=== PATIENT | male | born 1950 | race Caucasian/White ===

== ENCOUNTER 2017-01-09 18:08 | Inpatient (IN) | payer MEDICARE ==
[~2017-01-09] VITALS: Ht 172.7 cm; Wt 74.8 kg
[~2017-01-09 18:08] MED LIST: GABA300S PO; GLUC-180 PO; LACT1CAP73 PO; MAGN400C PO; MELA5TAB12 PO; MULT-1018 PO; OXYC-176 PO; QVAR INH; RYT150 PO; SEREVENT INH; TEMA15CA PO; VIT1TABL95 PO; citrucel; zypan
--- NOTE | 2017-01-09 19:51 | NUR ---
ADMISSION Pt arrived onto unit at 1915 as a direct admit from [facility] urgent care for pneumonia. He has been seen a few times over the last week for coughing, chest congestion, PASTOR, fatigue, wheezing (asthma), low grade fever resolved earlier in week. Pt is A&Ox3, no pain, steady gait, independent. Oriented to room, call light. Doctor notified and this nurse and DO are currently initiating admission questions.
[2017-01-09] MEDS ORDERED: Polyethylene Glycol (PEG) 17 Gm Powder PO PRN (20:20)
[2017-01-09] MEDS ORDERED: Alum-Mag Hydrox-Simeth 30 mL Suspension PO PRN (20:20)
--- NOTE | 2017-01-09 20:29 | NUR ---
CPAP Pt has CPAP, will be bringing it this evening to the hospital. Addendum: 01/10/17 at 0203 by GINGER KLINE RN chose not to come in this evening due to windy weather. Charge nurse decided to use 1.5L O2 and continuous pulse ox at night. Pt did not want to pay for CPAP from hospital if possible.
[2017-01-09] MEDS: Albuterol-Ipratropium 3 mL Inhalation Solution NEB SCH (20:30)
--- NOTE | 2017-01-09 20:47 | PCM.HPMED ---
Subjective Date of Service Jan 09, 2017 Primary Provider: Admitting Physician: Jl Berumen MD Primary Care Physician: Nayeli Wells Attending Physician: Jl Berumen MD Chief Complaint: Cough, productive green sputum, shortness of breath, sweats, chills, wheeze, fatigue History of Present Illness: This is a 66-year-old male with past medical history of A. fib, takes propranolol 10 mg tablets twice per day, history of asthma exercise induced, who presented for direct admission at request of patient's PCP Shai Perez secondary to bilateral pneumonia as seen on chest x-ray today and worsening of his upper respiratory symptoms over the past week. Patient was seen on 2016 at urgent care and had chest x-ray done at that time that was negative, and was prescribed 20 mg of prednisone daily. Patient states he took a single dose of this medication with possibly some improvement however was keeping him awake at night so he will has been noncompliant with the medication. Patient states that he has taken prednisone on a few occasions since that time. Was again seen on 01/02/2017 by his PCP and was diagnosed with pneumonia given medication Augmentin as per day for 10 days. Patient states that he initially began to feel improvement of his upper respiratory symptoms which consist of following. Patient complains of intermittent fevers with last one on Thursday, , sweats, chills, shortness of breath, productive cough of green sputum , intermittent wheeze, headaches and fatigue. Patient also had associated symptoms at that time of dysuria and difficulty starting his stream, which is unusual for him. Patient states that since he has been augmented that his dysuria has resolved however after 2 days of antibiotics medication his symptoms again started to worsen prompting him to return to his primary care physician today. Today patient had chest x-ray done and showed bilateral pneumonia. Patient denies sore throats, neck stiffness, current headache, abdominal pain, nausea, vomiting, constipation, diarrhea, pain with urination. Vital signs at the clinic today were temperature 97.5F, 36.39C, pulse 65, respiratory rate 12, blood pressure 118/66 Chest x-ray, two-view, at [facility]'s 01/09/2017 showed: Bilateral patchy areas of density consistent with pneumonia Review of Systems: A comprehensive review of systems was conducted and was negative except as mentioned in history of present illness. Allergies Coded Allergies: NSAIDS (Non-Steroidal Anti-Inflamma (Verified Allergy, Intermediate, ) Pt doesn't remember amitriptyline (Verified Allergy, Intermediate, 01/09/17) Pt doesn't remember ciprofloxacin (Verified Allergy, Intermediate, N/V, 05/10/13) diltiazem (Verified Allergy, Intermediate, 01/09/17) Pt doesn't remember tadalafil (Verified Allergy, Intermediate, 01/09/17) Pt doesn't remember trazodone (Verified Allergy, Intermediate, 01/09/17) Pt doesn't remember sertraline (Verified Adverse Reaction, Intermediate, 01/09/17) Pt does not remember Home Medications Augmentin, 875 125 mg tablets take 1 tablet by mouth twice daily for 10 days. Patient is on day 7.5. And has had his morning dose but not his evening dose. Pro-air HFA 90 g metered-dose inhaler, take 2 puffs every 4 hours as needed, patient has been using twice per day, last use was one bout 1/2-2 hours prior to admission Dulera (Mometasone Furo-formoterol) 2005 microgram, take 2 inhalations twice a day. Aspirin 81 mg tablet daily Propranolol HCL 10 mg twice daily for A. fib, patient has only had his morning dose today Endocet (oxycodone acetaminophen) 53 25 mg tablets Temazepam 7.5 mg takes 2 tablets by mouth every night before bed Propafenone 225 mg tabs takes one by mouth 3 times a day Gabapentin 300 mg capsules 1 capsule 5 times daily PMH Seasonal allergies, Exercise-induced asthma, Atrial fibrillation, Mild mitral insufficiency, mild left atrial enlargement, history of colonic polyps in 2009 that showed tubular adenoma, 2013 hyperplastic polyp Diverticulosis IBS since 01/22/2011 Left shoulder dislocation 1996 Degenerative disc disease L4 on 5 L5-S1 with central canal stenosis History of renal stones Current anglesmith is Dr. Begum/Val Current millwright instructor is Dr. Geller Current urologist Dr. Tee Surgical History Partial right nephrectomy 2002 Appendectomy 1971 Family History Sr. hypertension Mother stomach cancer father bladder cancer, coronary artery disease Social History Hx Alcohol Use: Yes Alcoholic Drinks Per Day: 1 glass wine Hx Substance Use: No Hx Tobacco Use: No Smoking Status: Former Smoker (patient quit in 1992 smoked for 20 years half pack a day) Exam Vital Signs Vital signs at the clinic today were temperature 97.5F, 36.39C, pulse 65, respiratory rate 12, blood pressure 118/66 Exam General: Patient is alert, and oriented 3, speaking in full sentences, sitting at the edge of the bed in no acute distress. He is very tangential in his history. HEENT: NC/AT, eyes, PERRLA, EOMI, neck, soft supple, no adenopathy, no JVD, no masses, no thyromegaly, throat mucous membranes pink and moist, no erythema, no exudates, no tonsillar swelling, no uvular deviation. Lungs: Crackles heard bilateral bases, greater on the right than the left, with wheeze present on the right midlung field wheezes, no rhonchi, no use of accessory muscles of respiration, good air movement, good respiratory effort. Heart: Regular rate and rhythm, no murmur, S1-S2 present, no rub, no click, no distant heart sounds, Abdomen: Soft, nontender, nondistended, bowel sounds active, no rebound, no guarding, Genitourinary: No CVA tenderness, no suprapubic tenderness, no Pierre catheter, Extremities: pulses equal and symmetric upper/lower extremity including radial and dorsalis pedis, no edema Neurologic: Grossly neurologically intact, speaking in full sentences, no focal neurological signs Skin: Skin is intact and warm and dry without rash Psychiatric: Tangential in history otherwise mood and affect are congruent Lab and Diagnostics X-Rays, CTs and MRIs Chest x-ray, two-view, at [facility] Physician's 01/09/2017 showed: Bilateral patchy areas of density consistent with pneumonia Assessment & Plan This is a 66-year-old male with past medical history of A. fib, takes propranolol 10 mg tablets twice per day, history of asthma exercise induced, who presented for direct admission at request of patient's PCP Shai Perez secondary to bilateral pneumonia as seen on chest x-ray today and worsening of his upper respiratory symptoms. # Community acquired pneumonia, present on admission, active Patient was admitted for failed outpatient therapy on Augmentin, patient had taken 7.5 days worth of Augmentin when he was admitted to the hospital for observation. Patient stated that initially he was feeling improvement after a couple days of antibiotics but then began to feel as though he was worsening. Overall patient states his he is improved from his initial symptoms of shortness of breath, cough productive green sputum, sweats, chills, wheeze. He last reports fever on 01/05/2017 - CXR at [facility] showed bilateral patchy areas of density consistent with pneumonia - CBC with Diff, CMP, UA, Urine CX if indicated - Sputum ordered and pending - Blood Cx X 2 ordered and pending - Procalcitonin order depending - CAP Empiric ABx Ceftriaxone 1000 mg every 24 H + Doxycycline 100 mg every 12 hours - Acetominophen for Fever control - MRSA screen - IV Saline fluids 125 mg per hour maintenance - Legionella urine antigen, and Strep pneumonia urine antigen - Viral PCR (biofire) - Influenzae A/B - Start prednisone by mouth 20 mg daily - We will start DuoNeb therapy scheduled 2 then when necessary Chronic problems #Seasonal allergies, #Exercise-induced asthma, #Atrial fibrillation, - We will continue home medication propanolol 10 mg twice a day, of note patient did not take his p.m. dose on day of admission. - Continuous cardiac monitoring while in-house #Mild mitral insufficiency, mild left atrial enlargement, history of colonic polyps in 2009 that showed tubular adenoma, 2012 hyperplastic polyp #Diverticulosis #IBS since 01/22/2011 #Degenerative disc disease L4 on 5 L5-S1 with central canal stenosis #History of renal stones Current anglesmith is Dr. Begum/Val Current millwright instructor is Dr. Geller Current urologist Dr. Tee Disposition: Admitted to in patient service with expected length of stay greater than 2 days, secondary to severity of presenting symptoms, treatment plan, complexity of clinical work up, and risk of adverse events. CODE STATUS: Full code PCP: Shai Perez DVT PE prophylaxis: Enoxiparin Contact: Pain Evaluation: Adequate Pain Control VTE Prophylaxis: Sub-Q Enoxaparin Resuscitation Status: CPR: Attempt Resuscitation Attending Statement The patient was seen and examined together with Dr. Denney on 01/09/2017 and I agree with the history, exam and plan as outlined in the note above. Kris Denney DO Jan 09, 2017 20:47 Jl Berumen MD Jan 10, 2017 05:07
[2017-01-09 21:04] LABS: BASOPHILS % (AUTO) 0.2 % (0-3); EOSINOPHILS % (AUTO) 0.2 % (0-5); MONOCYTES % (AUTO) 9.1 % (4-12); Mean Corpuscular Hemoglobin 30.6 pg (27.0-35.0); Mean Corpuscular Volume 93.7 fL (81-100); Platelet Count 428 bil/L (150-400)
[2017-01-09 21:40] LABS: Magnesium 2.3 mg/dL (1.6-2.6)
[2017-01-09] MEDS ORDERED: TEMA7.5C14 PO (22:00)
[2017-01-09] MEDS ORDERED: ASPI81TA3 PO (22:00)
[2017-01-09] MEDS ORDERED: AMOX-366 PO (22:00)
[2017-01-09] MEDS ORDERED: GABA-502 PO (22:00)
[2017-01-09] MEDS ORDERED: PROP10TA8 PO ×2 (22:00)
[2017-01-09] MEDS ORDERED: PROP225T PO (22:00)
[2017-01-09] MEDS ORDERED: ALBU8.5H2 INHALATION (22:00)
[2017-01-09] MEDS ORDERED: MOME13HF IH (22:00)
[2017-01-09] MEDS: 0.9% Sodium Chloride 1,000 ML IV SCH (23:15)
[2017-01-09] MEDS: cefTRIAXone Inj 1,000 MG in Dextrose 5% Minibag Plus 50 ML IV SCH (23:16)
[2017-01-09 23:49] LABS: APPEARANCE,URINE CLEAR (CLEAR,HAZY); COLOR,URINE YELLOW (YELLOW); OCCULT BLOOD,URINE NEGATIVE (NEGATIVE); UROBILINOGEN,URINE NORMAL (NORMAL)
[2017-01-10] VITALS (10 sets, daily range): BP systolic 101–126; BP diastolic 60–67; PULSE 57–76; RESP 16–20; O2SAT 92–96
[2017-01-10] MEDS: Doxycycline Inj 100 MG in Dextrose 5% Minibag Plus 100 ML IV SCH ×3 (00:16→20:35)
[2017-01-10] MEDS: Albuterol-Ipratropium 3 mL Inhalation Solution NEB SCH ×6 (00:31→20:30)
--- NOTE | 2017-01-10 03:59 | NUR ---
Medications Pt arrived on unit with multiple medication bottles, many of which had varied pills in one container, unlabeled, and cut into halves and fourths. Meds were brought down to the pharmacy after explaining to patient they could not be kept in the room, but would be saved for him at discharge. Med Rec was challenging with some discrepencies between patient report and HCP written report from today's visit. Pt appeared anxious and repeatedly asked when meds from pharmacy would arrive onto unit. There were three changes patient requested to match what he recalled as his usual dosages after they arrived. Dr. Berumen allowed the added evening dose of propranolol, changing temazepam dose from 7.5mg to 15mg q HS, propafenone dose from 225mg to 150mg TID and give the missed evening dose. Patient was more settled and managed to rest after receiving his medications.
[2017-01-10] MEDS: oxyCODONE-Acetamin 5-325 mg Tablet PO PRN ×4 (06:02→16:34)
[2017-01-10] MEDS: predniSONE 20 mg Tablet PO SCH (08:02)
[2017-01-10] MEDS: 0.9% Sodium Chloride 1,000 ML IV SCH ×3 (10:26→18:42)
--- NOTE | 2017-01-10 11:21 | NUR ---
Social Work: Initial Assessment D: Per EMR review, pt is a 66 year old male admitted for community acquired pneumonia. pt is [facility] Medicare with no LTC insurance or VA benefits. PCP is CATHY Louis. JOSY is Jeannie Delgado, . [phone]. Advanced directives not completed- info declined by pt. Readmit score not entered. NURSING UNIT MANAGER met with pt at bedside. Sw role explained and contact info provided. See initial assessment. Pt and spouse live on [address]. Pt is I with ADLs and uses no DME. Pt continues to drive and has never had HH or SNF placement. Pt expresses no concerns about discharge home and states that he will drive himself home when ready. EMR reviewed, pt has been ambulating I during admission. NURSING UNIT MANAGER discussed dcp with MD who agrees and states pt will d/c'd with oral abx possibly tomorrow. A: Pt who is I at baseline. P: Anticipate pt to discharge home via POV and no further sw needs; NURSING UNIT MANAGER to continue to follow. CLAUDETTE Tee Addendum: 01/10/17 at 1125 by ALLEY PFEIFFER Amended: Links added.
--- NOTE | 2017-01-10 12:28 | PCM.PNMED ---
Subjective Date of Service Jan 10, 2017 Subjective patient denied SOB, has mild intermittent cough, clear sputum, c/o mild wheezing, Exam Vital Signs Vital Sign - Last Date Time Temp Pulse Resp B/P Pulse Ox O2 Delivery O2 Flow Rate FiO2 01/10/17 11:43 57 16 93 Room Air 01/10/17 08:10 36.7 110/63 01/10/17 05:18 1.50 Intake and Output 01/09/17 01/09/17 01/10/17 Cumulative From/Thru 15:00 23:00 07:00 01/09/17 19:19 - 01/10/17 06:07 Intake Total 1409 ml 1409 ml Output Total 1750 ml 1750 ml Balance -341 ml -341 ml Intake Oral 800 ml 800 ml IV Total 609 ml 609 ml Output Urine Total 1750 ml 1750 ml # Voids 1 1 Exam NAD, comfortably laying down on the bed no JVD, MMM, no LAD RRR, nl s1, s2 no mrg CTAB, crackles on LT base, no wheezing S,ND,NT,normoactive BS+ warm, no edema, pulses 2/2 IVs and Medications Medications Reviewed: Medications were reviewed in detail Lab and Diagnostics Result Diagram: 01/09/17203901/09/172039 X-Rays, CTs and MRIs Chest x-ray, two-view, at [facility] Physician's 01/09/2017 showed: Bilateral patchy areas of density consistent with pneumonia Assessment & Plan This is a 66-year-old male with past medical history of A. fib, takes propranolol 10 mg tablets twice per day, history of asthma exercise induced, who presented for direct admission at request of patient's PCP Shai Perez secondary to bilateral pneumonia as seen on chest x-ray today and worsening of his upper respiratory symptoms. #dyspnea, cough, sputum, POA, presumed due to CAP, per history, pt did improve with Augmentin, purulence/amount of sputum decreased although still symptomatic. CXR reportedly had interval changes in one week suggestive of bilateral PNA, -clinically stable, good SpO2, no signs of asthma asthma exacerbation. -will get CXR today here as images from PCP not able to access. -continue Rocephin, Doxy today -get sputum CXR, resp PCR, other infectious ngtd: MRSA, strep Ag, legionella. -started prednisone 20mg qd, last dose 3days intermittently, would not continue given low suspicion of asthma. -alb prn q4h for sob -will consider Levaquin oral upon d/c. [id number] on adm, not too concerned iteraction with propafenone. Chronic problems #Seasonal allergies, #Exercise-induced asthma, #Atrial fibrillation, - We will continue home medication propanolol 10 mg twice a day, of note patient did not take his p.m. dose on day of admission. - Continuous cardiac monitoring while in-house #Mild mitral insufficiency, mild left atrial enlargement, history of colonic polyps in 2009 that showed tubular adenoma, 2012 hyperplastic polyp #Diverticulosis #IBS since 01/22/2011 #Degenerative disc disease L4 on 5 L5-S1 with central canal stenosis #History of renal stones Current semiconductor processing group leader is Dr. Begum/Val Current pipe fitter maintenance is Dr. Geller Current urologist Dr. Tee Disposition:likely tomorrow home CODE STATUS: Full code PCP: Shai Perez DVT PE prophylaxis: Enoxiparin Contact: VTE Prophylaxis: Sub-Q Enoxaparin Resuscitation Status: CPR: Attempt Resuscitation Time spent 35min Destiny Ludwig MD Jan 10, 2017 12:20
--- NOTE | 2017-01-10 14:57 | NUR ---
Ary/percocet Pt requesting his dulera inhaler. Request made to to order. Also request made to order 2 of percocet tab. pt reports this is what he takes at home. Addendum: 01/10/17 at 1512 by PANCHO BRAMBILA RN new order received for ary
--- NOTE | 2017-01-10 15:51 | DRSVH ---
PROCEDURE: X-RAY CHEST, TWO VIEWS ([id number]) INDICATIONS: presumed PNA dyspnea sputum TECHNIQUE: 2 views of the chest were acquired. COMPAR[facility]: [facility] [place] 4:39 PM. FINDINGS: Surgical changes and devices: None. Lungs and pleura: Since the films of 10/11/16 densities have appeared bilaterally in the lungs. They ar e in the mid to upper lung field on the right, the right base and in the left midlung field and retro cardiac region on the left. The appearance of these densities is consistent with pneumonia. Mediastinum: Mediastinal contours are normal. Heart size is normal. Bones and chest wall: No suspicious bony abnormalities. Soft tissues appear unremarkable. IMPRESSION: Densities consistent with pneumonia somewhat rounded in appearance. Followup to clearing is suggested. No effusions are seen. Dictated by: German Helms M.D. on 01/10/2017 at 15:49 Approved by: German Helms M.D. on 01/10/2017 at 15:50
--- NOTE | 2017-01-10 16:59 | NUR ---
Resp/mobility Pt reports "not feeling much better". Feeling tired and weak RA sats 92% at beginning of shift up to 94%. Able to ambulate henriquez with minimal SOB Indep in room
[2017-01-10] MEDS: cefTRIAXone Inj 1,000 MG in Dextrose 5% Minibag Plus 50 ML IV SCH (19:33)
[2017-01-10] MEDS: Fluticasone-Salmererol 250-50 Inhaler INHALATION SCH (20:35)
[2017-01-11] MEDS: oxyCODONE-Acetamin 5-325 mg Tablet PO PRN ×3 (00:17→08:52)
[2017-01-11] MEDS: Albuterol-Ipratropium 3 mL Inhalation Solution NEB SCH ×3 (00:30→07:38)
[2017-01-11 01:01] VITALS: BP 109/59; PULSE 57; RESP 17; O2SAT 98
[2017-01-11] MEDS: 0.9% Sodium Chloride 1,000 ML IV SCH (04:40)
--- NOTE | 2017-01-11 05:05 | NUR ---
Respiratory Pt reports feeling better and breathing easier. O2 Sats have improved slightly since beginning of shift and patient is very happy with improvement since admission. Pt has not requested Neb treatment this shift.
[2017-01-11 05:35] VITALS: BP 110/58; PULSE 58; RESP 16; O2SAT 94
[2017-01-11 06:20] VITALS: PULSE 65
[2017-01-11 07:29] LABS: BASOPHILS % (AUTO) 0.2 % (0-3); EOSINOPHILS % (AUTO) 0.8 % (0-5); MONOCYTES % (AUTO) 8.5 % (4-12); Mean Corpuscular Hemoglobin 30.6 pg (27.0-35.0); Mean Corpuscular Volume 93.5 fL (81-100); NEUTROPHILS % (AUTO) 61.1 % (40-74); Platelet Count 439 bil/L (150-400)
--- NOTE | 2017-01-11 07:39 | NUR ---
Patient is on room air without respiratory distress. he has refused bronchodilator therapy all night and this morning also. he says he will be going home this morning and his breathing is "ok".
[2017-01-11 07:44] LABS: Magnesium 2.1 mg/dL (1.6-2.6); Phosphorus 2.5 mg/dL (2.5-4.9)
[2017-01-11] MEDS: Doxycycline Inj 100 MG in Dextrose 5% Minibag Plus 100 ML IV SCH (08:30)
[2017-01-11] MEDS: Fluticasone-Salmererol 250-50 Inhaler INHALATION SCH (08:51)
[2017-01-11] MEDS: predniSONE 20 mg Tablet PO SCH (08:51)
[2017-01-11 08:55] VITALS: BP 105/54; PULSE 62; RESP 20; O2SAT 95
[2017-01-11 08:56] VITALS: PULSE 60
[2017-01-11] MEDS ORDERED: AZIT500T5 PO (09:01)
[2017-01-11] MEDS ORDERED: CEFU500T61 PO (09:01)
--- NOTE | 2017-01-11 09:04 | PCM.DIMED ---
Discharge Instructions Date of Service Jan 11, 2017 Dates of Hospitalization Jan 09, 2017 at 18:44 Discharge Diagnosis Discharge Diagnosis Community acquired pneumonia Medication Instructions Please take Cefuroxime 500mg twice a day for 7days Please take Azithromycin 500mg daily for 7days. Please continue to use your inhalers for asthma Diet No restrictions Activity No restrictions Call your provider Shortness of breath Patient Instructions You were hospitalized with pneumonia, treated with antibiotics for which you responded well. Please follow medicine instruction and follow up with your doctor in one week. Follow-up Provider: Nayeli Wells Follow-up with PCP in: 1 week Destiny Ludwig MD Jan 11, 2017 09:02
--- NOTE | 2017-01-11 09:35 | NUR ---
IV Pt IV beeping, c/o mild discomfort. Just above IV site to the inside puffy IV infiltrated notified am IV abx not given. Order for DC noted.
--- NOTE | 2017-01-11 11:09 | NUR ---
Discharge Reviewed DC instructions with patient. Answered all questions Faxed scripts to [facility] per patient request Hard copies sent in packet with patient. Addendum: 01/11/17 at 1123 by PANCHO BRAMBILA RN [id number] Pt amb to ER entrance to home in private auto. All belongings taken.
--- NOTE | 2017-01-11 23:17 | PCM.DC.MED ---
Discharge Summary Date of Service Jan 11, 2017 Dates of Hospitalization Date of Hospital Admission Jan 09, 2017 at 18:44 Date of Discharge: Jan 11, 2017 Providers: Admitting Physician: Jl Berumen MD Primary Care Physician: Nayeli Wells Attending Physician: Jl Berumen MD Diagnosis at Time of Discharge Diagnosis at Time of Discharge Community acquired pneumonia Chronic problems #Seasonal allergies, #Exercise-induced asthma, #Atrial fibrillation, #Mild mitral insufficiency, mild left atrial enlargement, history of colonic polyps in 2009 that showed tubular adenoma, 2012 hyperplastic polyp #Diverticulosis #IBS since 01/22/2011 #Degenerative disc disease L4 on 5 L5-S1 with central canal stenosis #History of renal stones Procedures XRay, CTs & MRIs PROCEDURE: X-RAY CHEST, TWO VIEWS ([id number]) INDICATIONS: presumed PNA dyspnea sputum TECHNIQUE: 2 views of the chest were acquired. COMPARISON: [facility], CR, XR CHEST 2VW, 10/11/2016, 13:01. [facility], , CHEST 2VW, 01/09/2017, 4:39 PM. FINDINGS: Surgical changes and devices: None. Lungs and pleura: Since the films of 10/11/16 densities have appeared bilaterally in the lungs. They are in the mid to upper lung field on the right, the right base and in the left midlung field and retrocardiac region on the left. The appearance of these densities is consistent with pneumonia. Mediastinum: Mediastinal contours are normal. Heart size is normal. Bones and chest wall: No suspicious bony abnormalities. Soft tissues appear unremarkable. IMPRESSION: Densities consistent with pneumonia somewhat rounded in appearance. Followup to clearing is suggested. No effusions are seen. Dictated by: German Helms M.D. on 01/10/2017 at 15:49 Approved by: German Helms M.D. on 01/10/2017 at 15:50 Chest x-ray, two-view, at [facility] Physician's 01/09/2017 showed: Bilateral patchy areas of density consistent with pneumonia Brief History HPI obtained by 01/09 This is a 66-year-old male with past medical history of A. fib, takes propranolol 10 mg tablets twice per day, history of asthma exercise induced, who presented for direct admission at request of patient's PCP Shai Perez secondary to bilateral pneumonia as seen on chest x-ray today and worsening of his upper respiratory symptoms over the past week. Patient was seen on 2016 at urgent care and had chest x-ray done at that time that was negative, and was prescribed 20 mg of prednisone daily. Patient states he took a single dose of this medication with possibly some improvement however was keeping him awake at night so he will has been noncompliant with the medication. Patient states that he has taken prednisone on a few occasions since that time. Was again seen on 01/02/2017 by his PCP and was diagnosed with pneumonia given medication Augmentin as per day for 10 days. Patient states that he initially began to feel improvement of his upper respiratory symptoms which consist of following. Patient complains of intermittent fevers with last one on Thursday, , sweats, chills, shortness of breath, productive cough of green sputum , intermittent wheeze, headaches and fatigue. Patient also had associated symptoms at that time of dysuria and difficulty starting his stream, which is unusual for him. Patient states that since he has been augmented that his dysuria has resolved however after 2 days of antibiotics medication his symptoms again started to worsen prompting him to return to his primary care physician today. Today patient had chest x-ray done and showed bilateral pneumonia. Patient denies sore throats, neck stiffness, current headache, abdominal pain, nausea, vomiting, constipation, diarrhea, pain with urination. Vital signs at the clinic today were temperature 97.5F, 36.39C, pulse 65, respiratory rate 12, blood pressure 118/66 Chest x-ray, two-view, at [facility]'s 01/09/2017 showed: Bilateral patchy areas of density consistent with pneumonia Hospital Course This is a 66-year-old male with past medical history of A. fib, takes propranolol 10 mg tablets twice per day, history of asthma exercise induced, who presented for direct admission at request of patient's PCP Shai Perez secondary to bilateral pneumonia as seen on chest x-ray today and worsening of his upper respiratory symptoms. #Dyspnea, cough, sputum, POA, presumed due to CAP, per history, pt did improve with Augmentin, purulence/amount of sputum decreased although still symptomatic However, CXR showed rapid interval chg even with Augmentin in one week, multifocal, patient was started Ceftriaxone and doxycycline, decided to treat full course with Cefuroxime, Azithromycin as pt is allergic to Quinolone( unknown response). QTc was 415. not too concerned interaction with propafenone. Patient was briefly on [id number](couldn't tolerate 40 due to insomnia per pt) however, suspicion for asthma excerbation was low given no wheezing, not continued upon d/c. patient clinically remained stable, afebrile not septic, subjectively improved with tx, deemed safe for d/c Chronic problems #Seasonal allergies, #Exercise-induced asthma, #Atrial fibrillation,- continue home medication propanolol 10 mg twice a day, #Mild mitral insufficiency, mild left atrial enlargement, history of colonic polyps in 2009 that showed tubular adenoma, 2012 hyperplastic polyp #Diverticulosis #IBS since 01/22/2011 #Degenerative disc disease L4 on 5 L5-S1 with central canal stenosis #History of renal stones Exam Vital Signs (Last) Date Time Temp Pulse Resp B/P Pulse Ox O2 Delivery O2 Flow Rate FiO2 01/11/17 08:56 60 01/11/17 08:55 Supplement Oxygen CPAP/BIPAP 01/11/17 08:55 36.4 20 105/54 95 01/11/17 01:01 1.50 Exam NAD, comfortably laying down on the bed no JVD, MMM, no LAD RRR, nl s1, s2 no mrg CTAB, crackles on LT base, no wheezing S,ND,NT,normoactive BS+ warm, no edema, pulses 2/2 Test 01/09/17 20:40 01/09/17 22:15 01/09/17 23:32 01/10/17 06:50 Hold Gutierrez Top Tube Received (Received) Urine Legionella pneumophilia Ag Negative (Negative) Urine Color Yellow (YELLOW) Urine Appearance Clear (CLEAR,HAZY) Urine pH 7.0 (5.0-8.0) Urine Specific [place] 1.010 (1.003-1.035) Urine Protein Negativemg/dL (NEG,TRACE) Urine Glucose (UA) Negativemg/dL (NEGATIVE) Urine Ketones Negativemg/dL (NEGATIVE) Urine Occult Blood Negative (NEGATIVE) Urine Nitrite Negative (NEGATIVE) Urine Bilirubin Negative (NEGATIVE) Urine Urobilinogen Normalmg/dL (NORMAL) Urine Leukocyte Esterase Negative (NEGATIVE) Urine RBC 0-2/hpf (0-2) Urine WBC 0-5/hpf (0-5) Urine Epithelial Cells Occasional/hpf (NONE-MOD) Urine Crystals None seen (NONE SEEN) Urine Bacteria Few/hpf (NONE-FEW) Urine Hyaline Casts None/lpf (NONE) Urine Granular Casts None seen (NONE SEEN) Urine Waxy Casts None seen (NONE SEEN) Urine Red Blood Cell Casts None seen (NONE SEEN) Urine White Blood Cell Casts None seen (NONE SEEN) Urine Mucus None seen (None Seen) Urine Trichomonas None seen (NONE SEEN) Urine Yeast None (NONE SEEN) Urinalysis Comment None Urine Culture Reflexed Not indicated Procalcitonin 0.04ng/mL (0.00-0.08) Test 01/11/17 06:25 White Blood Count 9.7th/mm3 (3.8-10.1) Red Blood Count 3.72mil/mm3 (4.40-5.80) Hemoglobin 11.4g/dL (13.8-17.2) Hematocrit 34.8% (41.0-50.0) Mean Corpuscular Volume 93.5fL (81-100) Mean Corpuscular Hemoglobin 30.6pg (27.0-35.0) Mean Corpuscular Hemoglobin Concent 32.8% (32.0-37.0) Red Cell Distribution Width 13.4% (12.3-15.4) Platelet Count 439bil/L (150-400) Neutrophils (%) (Auto) 61.1% (40-74) Lymphocytes (%) (Auto) 28.9% (14-46) Monocytes (%) (Auto) 8.5% (4-12) Eosinophils (%) (Auto) 0.8% (0-5) Basophils (%) (Auto) 0.2% (0-3) Sodium Level 140mEq/L (134-144) Potassium Level 3.8mEq/L (3.5-5.2) Chloride Level 105mEq/L (97-108) Carbon Dioxide Level 23mmol/L (18-29) Blood Urea Nitrogen 16mg/dL (8-27) Creatinine 1.01mg/dL (0.76-1.27) Estimat Glomerular Filtration Rate 78mL/min (>59) Glucose Level 92mg/dL (60-99) Calcium Level 9.0mg/dL (8.5-10.1) Phosphorus Level 2.5mg/dL (2.5-4.9) Magnesium Level 2.1mg/dL (1.6-2.6) Total Bilirubin 0.3mg/dL (0.0-1.2) Aspartate Amino Transf (AST/SGOT) 15U/L (0-50) Alanine Aminotransferase (ALT/SGPT) 20U/L (0-44) Alkaline Phosphatase 43U/L (25-160) Total Protein 6.0g/dL (6.4-8.4) Albumin 3.0g/dL (3.4-5.0) Discharge Medications Discharge Medications ([serevent]) 50 MCG INH Q12 (Reported) ([zypan]) 2 tabs after meals (Reported) ([citrucel]) josé miguel (Reported) Albuterol HFA (Proair HFA) 8.5 Gm Hfa.aer.ad 2 PUFFS INHALATION Q4H (Reported) Aspirin Chew (Aspirin Chew) 81 Mg Chew 81 MG PO DAILY (Reported) Azithromycin (Azithromycin) 500 Mg Tablet 500 MG PO DAILY Prescribed by: DESTINY YOON MD Cefuroxime Axetil (Cefuroxime) 500 Mg Tablet 500 MG PO BID Prescribed by: DESTINY YOON MD Gabapentin (Gabapentin) 300 Mg Capsule 300 MG PO 5XD (Reported) Lactobacillus Combo No.11 (Probiotic) 1 Each Cap.sprink 1 EACH PO DAILY ( Reported) Magnesium Oxide (Magnesium) 400 Mg Capsule 300 MG PO HS (Reported) Mometasone/Formoterol (Dulera 200 Mcg/5 Mcg Inhaler) 13 Gm Hfa.aer.ad 13 GM IH BID (Reported) Oxycodone/APAP-Expunged Drug, Do Not Renew! (Percocet 5/325-Expunged Drug, Do Not Renew!) 1 Each Tablet 1 PO Q4H (Reported) Propafenone (Propafenone) 225 Mg Tablet 225 MG PO TID (Reported) Propranolol HCl (Propranolol HCl) 10 Mg Tablet 10 MG PO TID (Reported) Propranolol HCl (Propranolol HCl) 10 Mg Tablet 10 MG PO BID (Reported) As needed Temazepam (Temazepam) 7.5 Mg Capsule 7.5 MG PO HS PRN PRN For Insomnia (Reported ) Miscellaneous Medications MELATONIN-Expunged Drug, Do Not Renew! (MELATONIN-Expunged Drug, Do Not Renew!) 5 Mg Tab.rapdis 5 MG PO (Reported) MULTIVITAMIN-Expunged Drug, Do Not Renew! (MULTI VITAMIN -Expunged Drug, Do Not Renew!) 1 Each Tablet 1 EACH PO (Reported) Vit D3/Folic Acid/B2/B6/B12 (Folgard Tablet) 1 Each Tablet 1 EACH PO (Reported) Additional med instructions Please take Cefuroxime 500mg twice a day for 7days Please take Azithromycin 500mg daily for 7days. Please continue to use your inhalers for asthma Followup Plan Disposition: home Discharge Diet: No restrictions Discharge Activity: No restrictions Patient Instructions You were hospitalized with pneumonia, treated with antibiotics for which you responded well. Please follow medicine instruction and follow up with your doctor in one week. Follow-up Provider: Nayeli Wells Follow-up with PCP in: 1 week Time spent 65min Destiny Yoon MD Jan 11, 2017 11:52
== END 2017-01-11 11:15 | disposition home or self-care (01) | DRG 195 ==
LOC: MOC 18:44
PROVIDERS: ADMIT Family Medicine; ATTEND Family Medicine
PROC: 3E0D7RZ Introduction of Antiarrhythmic into Mouth and Pharynx, Via Natural or Artificial Opening (ICD-10-PCS; principal; 2017-01-11)
DX: J18.9 Pneumonia, unspecified organism (principal); J45.990 Exercise induced bronchospasm; J30.2 Other seasonal allergic rhinitis; M51.37 Other intervertebral disc degeneration, lumbosacral region; K57.90 Diverticulosis of intestine, part unspecified, without perforation or abscess without bleeding; I48.91 Unspecified atrial fibrillation; Z91.19 Patient's noncompliance with other medical treatment and regimen; Z79.82 Long term (current) use of aspirin; Z87.891 Personal history of nicotine dependence